=== PATIENT | male | born 1980 | race Caucasian/White ===

== ENCOUNTER 2020-11-25 15:18 | Emergency (ER) | payer OTHER ==
[~2020-11-25] VITALS: Ht 170.2 cm; Wt 49.1 kg
[2020-11-25 15:27] VITALS: Ht 170.2 cm; Wt 49.1 kg
[2020-11-25 18:40] VITALS: BP 109/64
[2020-11-26] MEDS ORDERED: KEPPRA500 MG PO (05:03)
[2020-11-26] MEDS ORDERED: LITHOBID 300 M300 MG PO (05:04)
[2020-11-26] MEDS ORDERED: LITHIUM CARBON300 MG PO (05:04)
[2020-11-26] MEDS ORDERED: NEURONTIN 300300 MG PO (05:05)
[2020-11-26] MEDS ORDERED: CLOZAPINE200 MG PO (05:05)
[2020-11-26] MEDS ORDERED: MOBIC7.5 MG PO (05:06)
[2020-11-26] MEDS ORDERED: NEURONTIN600 MG PO (05:06)
[2020-11-26] MEDS ORDERED: CALCIUM CARBONATE (05:07)
[2020-11-26] MEDS ORDERED: FERROUS SULFAT325 MG PO (05:07)
[2020-11-26] MEDS ORDERED: TOPROL XL25 MG PO (05:07)
[2020-11-26] MEDS ORDERED: [UNRECOGNIZED DRUG - OTHER] PO (05:08)
[2020-11-26] MEDS ORDERED: ABILIFY10 MG PO (05:09)
[2020-11-26 09:55] VITALS: Ht 170.2 cm; Wt 49.1 kg
== END 2020-11-25 17:30 | disposition other institution (70) ==
LOC: D.ER 15:18
DX: L89.892 Pressure ulcer of other site, stage 2 (principal); Z89.511 Acquired absence of right leg below knee

== ENCOUNTER 2020-11-26 03:34 | Inpatient (IN) | payer OTHER ==
[2020-11-26] VITALS (21 sets, daily range): BP systolic 100–137; BP diastolic 54–97; BMI 25.1
[~2020-11-26] VITALS: Ht 170.2 cm; Wt 65.3 kg
--- NOTE | 2020-11-26 03:57 | NUR ---
FSBS 73
--- NOTE | 2020-11-26 04:17 | NUR ---
PT TO RADIOLOGY VIA STRETCHER
[2020-11-26 04:25] LABS: BASOPHILS 0.2 % (0-2); EOSINOPHILS 0 % (0-7); HEMATOCRIT 34.8 % (42.0-54.0); HEMOGLOBIN 11.1 g/dL (13.5-17.5); MCH 27.5 pg (26.0-34.0); MCV 86.1 fL (80.0-100.0); MEAN PLATELET VOLUME 7.5 fL (7.4-10.4); NEUTROPHILS 71.8 % (40-80); PLATELET COUNT 143 10x3/uL (130-400); RBC 4.04 10x6/uL (4.20-6.10); RDW 14.1 % (11.5-14.5); WBC 4.6 10x3/uL (4.8-10.8)
--- NOTE | 2020-11-26 04:29 | NUR ---
PT RETURNED FROM RADIOLOGY.
[2020-11-26 04:31] LABS: CALC OSMOLALITY 286 mosm/kg (275-300); CALCIUM 8.9 mg/dL (8.5-10.1); CARBON DIOXIDE 25.1 mmol/L (21.0-32.0); CHLORIDE - SERUM 108 mmol/L (98-107); CREATININE - SERUM 0.8 mg/dL (0.6-1.3); GLUCOSE 74 mg/dL (74-106); POTASSIUM - SERUM 3.1 mmol/L (3.5-5.1); SODIUM 144 mmol/L (136-145); UREA NITROGEN 15 mg/dL (7-18); eGFR NON AFRICAN AMERICAN > 90 mL/min (90-120)
[2020-11-26 04:34] LABS: INR 1.47 (0.85-1.17); PROTIME 16.5 SECONDS (11.6-15.0)
[2020-11-26 04:48] LABS: ALBUMIN 3.3 g/dL (3.4-5.0); ALKALINE PHOSPHATASE 84 U/L (30-120); ALT (SGPT) 16 U/L (10-68); BILIRUBIN - TOTAL 0.26 mg/dL (0.2-1.3); CKMB 3.4 U/L (0.0-3.6); CREATINE KINASE 252 UL (21-232); PRO BNP 48 pg/mL (0-125); PROTEIN - SERUM 6.7 g/dL (6.4-8.2)
[2020-11-26 04:49] LABS: TROPONIN-I < 0.017 ng/mL (0.000-0.060)
[2020-11-26] MEDS ORDERED: KEPPRA500 MG PO (05:03)
[2020-11-26] MEDS ORDERED: LITHIUM CARBON300 MG PO (05:04)
[2020-11-26] MEDS ORDERED: LITHOBID 300 M300 MG PO (05:04)
[2020-11-26 05:05] LABS: UDS - AMPHET NEGATIVE QUAL (NEGATIVE); UDS - BARB NEGATIVE QUAL (NEGATIVE); UDS - BENZO NEGATIVE QUAL (NEGATIVE); UDS - COCAINE NEGATIVE QUAL (NEGATIVE); UDS - OPIATE NEGATIVE QUAL (NEGATIVE); UDS - PCP NEGATIVE QUAL (NEGATIVE); UDS - THC NEGATIVE QUAL (NEGATIVE)
[2020-11-26] MEDS ORDERED: CLOZAPINE200 MG PO (05:05)
[2020-11-26] MEDS ORDERED: NEURONTIN 300300 MG PO (05:05)
[2020-11-26] MEDS ORDERED: NEURONTIN600 MG PO (05:06)
[2020-11-26] MEDS ORDERED: MOBIC7.5 MG PO (05:06)
[2020-11-26] MEDS ORDERED: FERROUS SULFAT325 MG PO (05:07)
[2020-11-26] MEDS ORDERED: TOPROL XL25 MG PO (05:07)
[2020-11-26] MEDS ORDERED: CALCIUM CARBONATE PO (05:07)
[2020-11-26] MEDS ORDERED: [UNRECOGNIZED DRUG - OTHER] PO (05:08)
[2020-11-26] MEDS ORDERED: ABILIFY10 MG PO (05:09)
--- NOTE | 2020-11-26 05:50 | NUR ---
PT FSBS RECHECK 71
--- NOTE | 2020-11-26 08:18 | NUR ---
CALLED REPORT TO ISRAEL GHOSH IN ICU.
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
--- NOTE | 2020-11-26 13:52 | NUR ---
1100-DR ANSARI AT BEDSIDE-PERSISTANT STIMULI-AGGRESSION FROM PT-LIO, INCOHEREBENITO
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
[2020-11-26 17:36] LABS: BILIRUBIN NEGATIVE (NEGATIVE); KETONE SMALL mg/dL (NEGATIVE); NITRITE NEGATIVE (NEGATIVE); UROBILINOGEN NORMAL mg/dL (< 2)
--- NOTE | 2020-11-26 20:00 | NUR ---
REC'D REPORT AND ASSUMED CARE OF PT. HAD JUST FINISHED EATING HIS DINNER, WHOM PREV SHIFT HAD PROVIDED FOR HIM. OK WITH TRAY BEING TAKEN AWAY BUT DID NOT WANT THE EMPTY COKE CANS TAKEN AWAY. DIFFICULT TO UNDERSTAND SPEECH, WOULD BECOME ANGRIER WHEN HE WASN'T UNDERSTOOD. INITIAL ASSESSMENT COMPLETED AND RECORDED PER FLOW SHEET. CULTURE RESULTS FROM WOUND ON STUMP CALLED TO Jocelyn BARNES APRN AND SHE WAS GOING TO PUT IN ANTIBIOTIC ORDERS. WILL IMPLEMENT ORDERS SOON THEY ARE AVAILABLE.
--- NOTE | 2020-11-26 23:30 | NUR ---
SITTING IN BED, CHANTING TO SELF, WORDS INDISTINGUISHABLE. NOTICE AN OCCASIONAL NON-PRODUCTIVE COUGH. VSS. WILL CONT TO MONITOR. HAVE NOT GIVEN ANY ATIVAN THUS FAR HE HAS BEEN SLEEPING.
[2020-11-27] VITALS (20 sets, daily range): BP systolic 95–140; BP diastolic 57–91
--- NOTE | 2020-11-27 04:20 | NUR ---
CONT TO SLEEP FOR THE MOST PART BUT IS BECOMING MORE COOPERATIVE AND EASIER TO UNDERSTAND OVER THE PAST COUPLE OF HOURS, BEING COOPERATIVE AND NO HOSTILITY NOTED. HAS NOT BEEN ARGUMENTATIVE, ASKING POLITELY FOR SOMETHING MORE TO DRINK OR A SNACK. A.M. LAB JUST DRAWN W/O ANY DIFFICULTY. WILL CONT WITH CURRENT PLAN OF CARE.
[2020-11-27 04:42] LABS: BASOPHILS 0.1 % (0-2); EOSINOPHILS 0 % (0-7); HEMATOCRIT 33.5 % (42.0-54.0); HEMOGLOBIN 10.9 g/dL (13.5-17.5); LYMPHOCYTES 32.9 % (15-50); MCH 27.8 pg (26.0-34.0); MCHC 32.6 g/dL (31.0-37.0); MCV 85.5 fL (80.0-100.0); MEAN PLATELET VOLUME 7.3 fL (7.4-10.4); MONOCYTES 9.1 % (2-11); NEUTROPHILS 57.9 % (40-80); PLATELET COUNT 135 10x3/uL (130-400); RBC 3.92 10x6/uL (4.20-6.10)
[2020-11-27 04:57] LABS: ALBUMIN 2.8 g/dL (3.4-5.0); ALKALINE PHOSPHATASE 68 U/L (30-120); ALT (SGPT) 15 U/L (10-68); BILIRUBIN - TOTAL 0.14 mg/dL (0.2-1.3); CALCIUM 8.2 mg/dL (8.5-10.1); CARBON DIOXIDE 24.9 mmol/L (21.0-32.0); CHLORIDE - SERUM 108 mmol/L (98-107); CREATININE - SERUM 0.8 mg/dL (0.6-1.3); GLUCOSE 106 mg/dL (74-106); MAGNESIUM - SERUM 1.9 mg/dL (1.8-2.4); POTASSIUM - SERUM 3.2 mmol/L (3.5-5.1); SODIUM 143 mmol/L (136-145); eGFR NON AFRICAN AMERICAN > 90 mL/min (90-120)
[2020-11-27 04:58] LABS: CALC OSMOLALITY 281 mosm/kg (275-300); UREA NITROGEN 5 mg/dL (7-18)
--- NOTE | 2020-11-27 07:49 | NUR ---
awake alert and calm-ativan held at this time-breakfest tray ordered-pharmacy notified of correct administration time for vancomycin-by previous [id number] prior to correctly scheduled
--- NOTE | 2020-11-27 10:05 | NUR ---
0900-REFUSED AGRESSIVELY-PO MEDS--REFUSED AGRESSIVELY REPEAT LAB DRAW
--- NOTE | 2020-11-27 12:11 | NUR ---
1100-agressively refused po med 1145-engaged in [address] conversation with self
--- NOTE | 2020-11-27 15:14 | NUR ---
1230-CHANBECKIE 1300-APPOINTMENT MANAGER WITH PSYCH SERVICES AT BEDSIDE-MADE AWARE PRN DOES OF ATIVAN AND HALDOL USED--AND EVENTS THROUGH OUT THIS AM-ORDERS RECIEVED-SENAN
--- NOTE | 2020-11-27 16:59 | NUR ---
1600-REQUESTED TELEPHONE-SAME PROVIDED-NO FURTHER CHANTING AT THIS TIME
--- NOTE | 2020-11-27 17:25 | NUR ---
APPEARS CALM AT THIS TIME
--- NOTE | 2020-11-27 20:00 | NUR ---
REC'D REPORT AND ASSUMED CARE OF PT. INITIAL ASSESSMENT COMPLETED AND RECORDED PER FLOW SHEET. L AC PIV PATENT, INFUSING W/O DIFF. HAD BEEN DOZING BUT EASILY RESPONDS TO VERBAL STIMULI AND AROUSES. WILL MONITOR.
--- NOTE | 2020-11-27 23:30 | NUR ---
HAS BEEN OCC DOZING OR SITTING IN THERE TALKING TO SOMEONE OR CHANTING INCOM- PREHENSIBLE WORDS. TOOK PM MEDS WITHOUT DIFFICULTY, WILL CONT TO MONITOR.
[2020-11-28] VITALS (15 sets, daily range): BP systolic 91–151; BP diastolic 59–92
--- NOTE | 2020-11-28 03:30 | NUR ---
LYING QUIETLY, HAS NOT BEEN CHANTING FOR PAST COUPLE OF HOURS. WILL CONT TO MONITOR.
[2020-11-28 05:08] LABS: BASOPHILS 0.1 % (0-2); EOSINOPHILS 0 % (0-7); HEMATOCRIT 33.1 % (42.0-54.0); HEMOGLOBIN 10.8 g/dL (13.5-17.5); LYMPHOCYTES 28.4 % (15-50); MCH 28.2 pg (26.0-34.0); MCHC 32.7 g/dL (31.0-37.0); MCV 86.3 fL (80.0-100.0); MEAN PLATELET VOLUME 7.8 fL (7.4-10.4); MONOCYTES 8.7 % (2-11); NEUTROPHILS 62.8 % (40-80); PLATELET COUNT 147 10x3/uL (130-400); RBC 3.83 10x6/uL (4.20-6.10); RDW 13.8 % (11.5-14.5); WBC 4.9 10x3/uL (4.8-10.8)
[2020-11-28 05:17] LABS: ALBUMIN 2.5 g/dL (3.4-5.0); ALKALINE PHOSPHATASE 67 U/L (30-120); ALT (SGPT) 12 U/L (10-68); BILIRUBIN - TOTAL 0.15 mg/dL (0.2-1.3); CALC OSMOLALITY 277 mosm/kg (275-300); CALCIUM 8.3 mg/dL (8.5-10.1); CARBON DIOXIDE 25.8 mmol/L (21.0-32.0); CHLORIDE - SERUM 109 mmol/L (98-107); CREATININE - SERUM 0.7 mg/dL (0.6-1.3); GLUCOSE 71 mg/dL (74-106); MAGNESIUM - SERUM 1.7 mg/dL (1.8-2.4); POTASSIUM - SERUM 3.5 mmol/L (3.5-5.1); PROTEIN - SERUM 5.7 g/dL (6.4-8.2); SODIUM 142 mmol/L (136-145); UREA NITROGEN 4 mg/dL (7-18); eGFR NON AFRICAN AMERICAN > 90 mL/min (90-120)
[2020-11-29] VITALS: BP 107/63
--- NOTE | 2020-11-29 02:53 | NUR ---
PATIENT REFUSED HIS 2100 MEDICATIONS, HE TOOK HIS IV OUT. HE WAS LAYING THERE WITH HIS EYES CLOSED AND WOULD NOT ANSWER MY QUESTIONS, THEN I WENT IN THERE TO TRY TO GET HIM HIS MEDS HE REFUSED, I CAME IN WITH THE ATIVAN AND TOLD HIMM I HAD A SHOT FOR HIM, I ASKE THE CHARGE AND TECH TO COME IN IN CASE HE TRIED TO HIT ME, I RETURNED TO HIS ROOM AND HE SAID I THOUGH YOU WERE GONNA GIVE ME A SHOT AND SAID HERE GIVE IT RIGHT HERE. HE HAS BEEN TALKING TO HIMSELF OFF AND ON, HE IS CURRENTLY RESTING IN BED WITH HIS EYES CLOSED.
[2020-11-29 04:00] VITALS: BP 112/67
[2020-11-29 06:05] LABS: BASOPHILS 0.4 % (0-2); EOSINOPHILS 0 % (0-7); HEMATOCRIT 32.5 % (42.0-54.0); HEMOGLOBIN 10.7 g/dL (13.5-17.5); LYMPHOCYTES 29.5 % (15-50); MCH 28.1 pg (26.0-34.0); MCV 85.2 fL (80.0-100.0); MEAN PLATELET VOLUME 8.2 fL (7.4-10.4); MONOCYTES 7.5 % (2-11); NEUTROPHILS 62.6 % (40-80); PLATELET COUNT 171 10x3/uL (130-400); RBC 3.82 10x6/uL (4.20-6.10); RDW 13.8 % (11.5-14.5); WBC 5.3 10x3/uL (4.8-10.8)
[2020-11-29 07:02] LABS: ALBUMIN 2.6 g/dL (3.4-5.0); ALKALINE PHOSPHATASE 69 U/L (30-120); ALT (SGPT) 13 U/L (10-68); BILIRUBIN - TOTAL 0.07 mg/dL (0.2-1.3); CALC OSMOLALITY 286 mosm/kg (275-300); CALCIUM 8.5 mg/dL (8.5-10.1); CARBON DIOXIDE 24.9 mmol/L (21.0-32.0); CHLORIDE - SERUM 110 mmol/L (98-107); CREATININE - SERUM 0.8 mg/dL (0.6-1.3); GLUCOSE 135 mg/dL (74-106); MAGNESIUM - SERUM 1.9 mg/dL (1.8-2.4); POTASSIUM - SERUM 3.4 mmol/L (3.5-5.1); PROTEIN - SERUM 5.8 g/dL (6.4-8.2); SODIUM 144 mmol/L (136-145); UREA NITROGEN 8 mg/dL (7-18); eGFR NON AFRICAN AMERICAN > 90 mL/min (90-120)
--- NOTE | 2020-11-29 07:05 | NUR ---
PATIENT NONCOMPLIANT LAST NIGHT, REFUSED MEDICATIONS LAST NIGHT, PATIENT K+ IS 3.4 WILL REPLETE THIS MORNING. CONTINUE WITH PLAN OF CARE
[2020-11-29 08:38] VITALS: BP 156/67
--- NOTE | 2020-11-29 11:31 | NUR ---
I have reviewed this patient and I concur with the Shift Assessment completed by the Licensed Practical Nurse today this shift.
[2020-11-29 11:45] VITALS: BP 115/71
[2020-11-29 12:24] VITALS: Ht 170.2 cm; Wt 65.3 kg
[2020-11-29 17:03] VITALS: BP 107/58
[2020-11-29 20:00] VITALS: BP 104/63
[2020-11-30 04:00] VITALS: BP 106/58
--- NOTE | 2020-11-30 06:42 | NUR ---
PATIENT HAD ANXIETY MANAGED WITH THE PRESCRIBED MEDICATION, HE IS CURRENTLY RESTING IN BED WITH HIS EYES CLOSED.
[2020-11-30 06:47] LABS: ALBUMIN 2.3 g/dL (3.4-5.0); ALKALINE PHOSPHATASE 58 U/L (30-120); ALT (SGPT) 10 U/L (10-68); BILIRUBIN - TOTAL 0.12 mg/dL (0.2-1.3); CALC OSMOLALITY 284 mosm/kg (275-300); CALCIUM 8.1 mg/dL (8.5-10.1); CARBON DIOXIDE 24.6 mmol/L (21.0-32.0); CHLORIDE - SERUM 112 mmol/L (98-107); CREATININE - SERUM 0.6 mg/dL (0.6-1.3); GLUCOSE 94 mg/dL (74-106); POTASSIUM - SERUM 3.7 mmol/L (3.5-5.1); PROTEIN - SERUM 5.2 g/dL (6.4-8.2); SODIUM 144 mmol/L (136-145); UREA NITROGEN 6 mg/dL (7-18); eGFR NON AFRICAN AMERICAN > 90 mL/min (90-120)
[2020-11-30 08:23] VITALS: BP 111/68
[2020-11-30 08:33] LABS: BASOPHILS 0.1 % (0-2); EOSINOPHILS 0 % (0-7); HEMATOCRIT 33.1 % (42.0-54.0); HEMOGLOBIN 10.8 g/dL (13.5-17.5); MCH 27.7 pg (26.0-34.0); MCHC 32.6 g/dL (31.0-37.0); MEAN PLATELET VOLUME 7.4 fL (7.4-10.4); MONOCYTES 9.1 % (2-11); NEUTROPHILS 62.8 % (40-80); PLATELET COUNT 198 10x3/uL (130-400); RDW 13.9 % (11.5-14.5); WBC 4.9 10x3/uL (4.8-10.8)
--- NOTE | 2020-11-30 09:10 | NUR ---
ALERT AND ORIENTED THIS MORNING. IS TALKING TO SELF AND OTHERS NOT IN THE ROOM. UPRIGHT IN BED EATING BREAKFAST. ADMINISTERED MEDICATION, NO DIFFICULTIES. DENIES ANY NEEDS AT THIS TIME. BED IN LOWEST POSITION, BED RAILS X2, CALL LIGHT WITHIN REACH. WILL CONTINUE POC. ASSESSMENT PERFORMED AT THIS TIME.
[2020-11-30 12:09] VITALS: BP 102/64
[2020-11-30 13:12] LABS: CLOZAPINE, SERUM 21 ng/mL (350-650); NORCLOZAPINE, SERUM 22 ng/mL (Not Estab.); TOTAL CLOZAPINE & NORCLOZAPINE 43 ng/mL (())
--- NOTE | 2020-11-30 13:59 | NUR ---
IN BED, DENIES NEEDS AT THIS TIME. BED LOW POSITION, CALL LIGHT IN REACH. FREE FROM SIGNS OF DISTRESS. I CONCUR WITH DROP FORGE OPERATOR SHIFT ASSESSMENT.
--- NOTE | 2020-11-30 15:22 | PN ---
PATIENT:MARCIA AMARO MEDICAL RECORD: [id number] LOCATION:[id number] ADMISSION DATE: 11/26/20 PROGRESS NOTE DATE OF SERVICE: 11/28/2020 SUBJECTIVE: The patient's case was discussed with staff. He has no new complaint. OBJECTIVE: The patient is partially oriented. He denies psychotic symptoms. He denies that he would seek to harm himself or others. ASSESSMENT: Schizophrenia. PLAN: Current medicines have been reviewed. They will be maintained. TRANSINT:[id number] Voice Confirmation ID: [id number] DOCUMENT ID: [id number] LUCAS JOYNER MD at 1522 CC: [id number] DICTATION DATE: 11/28/20 170 TAX CLERK: 11/30/20 0103 ADM IN [facility] [address] [place] [address]
--- NOTE | 2020-11-30 16:20 | NUR ---
HUNG NEW BAG OF IV FLUIDS, TOLERATING WELL. RESTING UPRIGHT IN BED. SIGNING OUTLOUD. DENIES ANY NEEDS. BED IN LOWEST POSITION, BED RAILS X2, CALL LIGHT WITHIN REACH. WILL CONTINUE POC.
[2020-11-30 17:02] VITALS: BP 116/74
[2020-11-30 20:00] VITALS: BP 105/68
[2020-12-01 04:00] VITALS: BP 111/61
--- NOTE | 2020-12-01 06:05 | NUR ---
PATIENT SITTING IN BED WATCHING TV LOUD IT WILL GO, MUMBLING INCOHERANT WORDS TO SELF, NO SIGNS OF DISTRESS, ANSWERS QUESTIONS APPROPRIATELY, CONTINUE WITH PLAN OF CARE
[2020-12-01 07:16] LABS: BASOPHILS 0.2 % (0-2); EOSINOPHILS 0 % (0-7); HEMATOCRIT 32.6 % (42.0-54.0); HEMOGLOBIN 10.9 g/dL (13.5-17.5); MCH 28.4 pg (26.0-34.0); MCHC 33.4 g/dL (31.0-37.0); MEAN PLATELET VOLUME 7.5 fL (7.4-10.4); MONOCYTES 7.8 % (2-11); PLATELET COUNT 209 10x3/uL (130-400); RBC 3.84 10x6/uL (4.20-6.10); RDW 14.1 % (11.5-14.5)
[2020-12-01 07:33] LABS: WBC 7.4 10x3/uL (4.8-10.8)
[2020-12-01 07:40] LABS: ALBUMIN 2.7 g/dL (3.4-5.0); ALKALINE PHOSPHATASE 66 U/L (30-120); CALC OSMOLALITY 278 mosm/kg (275-300); CALCIUM 8.3 mg/dL (8.5-10.1); CARBON DIOXIDE 26.8 mmol/L (21.0-32.0); CHLORIDE - SERUM 108 mmol/L (98-107); CREATININE - SERUM 0.7 mg/dL (0.6-1.3); GLUCOSE 87 mg/dL (74-106); MAGNESIUM - SERUM 2.1 mg/dL (1.8-2.4); POTASSIUM - SERUM 3.9 mmol/L (3.5-5.1); PROTEIN - SERUM 5.6 g/dL (6.4-8.2); SODIUM 142 mmol/L (136-145); UREA NITROGEN 5 mg/dL (7-18); eGFR NON AFRICAN AMERICAN > 90 mL/min (90-120)
[2020-12-01 07:42] LABS: ALT (SGPT) 15 U/L (10-68)
--- NOTE | 2020-12-01 08:20 | NUR ---
AWAKE AND ALERT. ORIENTED X3. NO C/O AT THIS TIME. LUNGS ARE CLEAR BILATERALLY, NO COUGH NOTED. SKIN IS INTACT WITHOUT REDNESS EXCEPT TO COCCYX AREA WHICH HAS A SUPERFICIAL STAGE 2. IV TO LEFT FOREARM IS PATENT WITHOUT REDNESS AT INSETION SITE. RIGHT BKA NOTED. DENIES NEEDS.
[2020-12-01 08:51] VITALS: BP 107/61
--- NOTE | 2020-12-01 09:00 | NUR ---
ATE MOST OF BREAKFAST. TOOK AM MEDS WITHOUT DIFFICULTY. DENIES NEEDS.
[2020-12-01 11:00] VITALS: BP 110/65
--- NOTE | 2020-12-01 11:00 | NUR ---
UP TO BSC PER SELF. VOIDED WITHOUT DIFFICULTY. SMALL STAGE 2 NOTED TO COCCYX AREA. CALMOSEPTINE APPLIED TO SAME.
--- NOTE | 2020-12-01 12:30 | NUR ---
LUNCH SERVED IN ROOM. FEEDS SELF. DENIES NEEDS.
--- NOTE | 2020-12-01 15:00 | NUR ---
RESTING QUIETLY IN BED. SOME RESTLESSNESS NOTED. WILL MONITOR.
--- NOTE | 2020-12-01 18:05 | NUR ---
GIVEN 2 MG HALDOL IM PER ORDERS. CALMED DOWN SOON HE RELIZED WHAT WAS HAPPENING. REFUSED TO EAT ANY SUPPER.
[2020-12-01 20:39] VITALS: BP 115/68
--- NOTE | 2020-12-02 03:10 | NUR ---
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 HE WAS THREATENING US AND WE LEFT THE ROOM AND HEALTH PROGRAM MANAGER WAS CALLED AND THE HOUSE SUPER VISOR BROUGHT SECURITY WITH HER AND SECURITY STOOD OUTSIDE THE DOOR. WHEN HE SAW THE HIV CTS SPECIALIST HE CALMED DOWN, WAS RESPECTFUL AND TOOK THE ATIVAN. HE HAS BEEN CALM AND RESTING AT THIS TIME.
--- NOTE | 2020-12-02 07:37 | NUR ---
PATIENT VERY IRRITATED THIS MORNING. SAID " I DON'T WANT THEM TAKING MY BLOOD THEYVE TAKEN BLOOD EVERY DAY" EXPLAINED THAT THE NLOOD DRAW WAS TO SEE THE LEVELS OF MEDICINE IN HIS SYSTEM TO SEE IF HE IS GETTING ENOUGH. PATIENT STATES HE IS ANGRY BECAUSE HE IS HUNGRY. GAVE PATIENT HALF A SANDWICH AND CHIPS WELL TWO DRINKS. WILL TRY TO START IV WHEN PATIENT CALMS DOWN MORE
--- NOTE | 2020-12-02 08:36 | NUR ---
patient refused to let occupational therapy technician take vs this morning, he is pleasuring himself and saying invoherant words. will attempt to give patient medications, patient refused to allow iv access
[2020-12-02 09:29] LABS: BASOPHILS 0.5 % (0-2); EOSINOPHILS 0 % (0-7); HEMATOCRIT 34.3 % (42.0-54.0); LYMPHOCYTES 16.8 % (15-50); MCH 27.4 pg (26.0-34.0); MCHC 32.1 g/dL (31.0-37.0); MCV 85.6 fL (80.0-100.0); MEAN PLATELET VOLUME 7.2 fL (7.4-10.4); MONOCYTES 7.3 % (2-11); NEUTROPHILS 75.4 % (40-80); PLATELET COUNT 232 10x3/uL (130-400); RBC 4.01 10x6/uL (4.20-6.10); RDW 14.3 % (11.5-14.5); WBC 6.2 10x3/uL (4.8-10.8)
[2020-12-02 09:47] LABS: ALBUMIN 2.7 g/dL (3.4-5.0); ALKALINE PHOSPHATASE 65 U/L (30-120); ALT (SGPT) 14 U/L (10-68); BILIRUBIN - TOTAL 0.19 mg/dL (0.2-1.3); CALC OSMOLALITY 285 mosm/kg (275-300); CALCIUM 8.8 mg/dL (8.5-10.1); CARBON DIOXIDE 26.6 mmol/L (21.0-32.0); CHLORIDE - SERUM 110 mmol/L (98-107); CREATININE - SERUM 0.7 mg/dL (0.6-1.3); GLUCOSE 103 mg/dL (74-106); POTASSIUM - SERUM 3.4 mmol/L (3.5-5.1); PROTEIN - SERUM 6.2 g/dL (6.4-8.2); SODIUM 145 mmol/L (136-145); UREA NITROGEN 5 mg/dL (7-18); eGFR NON AFRICAN AMERICAN > 90 mL/min (90-120)
--- NOTE | 2020-12-02 10:11 | MORECARE ---
CASE MANAGEMENT DISCHARGE SUMMARY PATIENT: MARCIA AMARO UNIT: [id number] ADM DATE: 11/26/20 AGE: 40 : 80 SEX: M ROOM/BED: D.2215 AUTHOR: AMBER,DOC PHYSICIAN: REFERRING PHYSICIAN: RU JIMENES MD DATE OF SERVICE: 12/02/20 Case Management Discharge Planning Summary DCP REVIEW SUMMARY ANTICIPATED D/C DATE: EXPECTED LOS : CASE STATUS: DCP Initiated INITIAL REVIEW: 11/26/2020 INITIAL REVIEWER: Alycia Waterman FINAL DISCHARGE DISPOSITION: : FINAL REVIEWER: FINAL REVIEW DATE: DCP Focus Questions & Answers QUESTION: ANSWER : PATIENT: MARCIA AMARO ENCOUNTER: [id number] MEDICAL RECORD#: [id number] ADMISSION DATE: 11/26/2020 DISCHARGE DATE: ATTENDING MD: RU KERNS : AGE: 40 MARITAL STATUS: U DC PLAN ID: [id number] FACILITY: [facility] PRINTED ON: 12/02/20 10:11 CT All edits/amendments must be made on the electronic document DICTATION DATE: 12/02/20 1011 LINEN SORTER: DM 12/02/20 1011 RPT#: [id number] DC DATE: STATUS: ADM IN [facility] [address] [place] [address] END OF REPORT
--- NOTE | 2020-12-02 10:22 | MORECARE ---
CASE MANAGEMENT DISCHARGE SUMMARY PATIENT: MARCIA AMARO UNIT: [id number] ADM DATE: 11/26/20 AGE: 40 : 80 SEX: M ROOM/BED: D.2215 AUTHOR: AMBER,DOC PHYSICIAN: REFERRING PHYSICIAN: RU JIMENES MD DATE OF SERVICE: 12/02/20 Case Management Discharge Planning Summary COMMENTS ENTERED DATE: 12/02/20 10:09 CT COMMENT TYPE: Discharge Planning REVIEWER: Alycia Waterman CALLED [facility] AND SPOKE WITH LICO ABOUT TRANSFERING THE PATIENT BACK TO THEM, HE STATED THAT THEY ARE FULL AT THE MOMENT, I FAXED CLINICAL TO [phone] AND HE SAID THAT THEY MAY HAVE A BED LATER THIS AFTERNOON . HE WOULD GIVE THE CLINICAL TO THEIR INTAKE PEOPLE. CM TO CONTINUE TO FOLLOW AND ASSIST NEEDED DCP REVIEW SUMMARY ANTICIPATED D/C DATE: EXPECTED LOS : CASE STATUS: DCP Initiated INITIAL REVIEW: 11/26/2020 INITIAL REVIEWER: Alycia Waterman FINAL DISCHARGE DISPOSITION: : FINAL REVIEWER: FINAL REVIEW DATE: DCP Focus Questions & Answers QUESTION: ANSWER : PATIENT: MARCIA AMARO ENCOUNTER: [id number] MEDICAL RECORD#: [id number] ADMISSION DATE: 11/26/2020 DISCHARGE DATE: ATTENDING MD: RU KERNS : AGE: 40 MARITAL STATUS: U DC PLAN ID: [id number] FACILITY: [facility] PRINTED ON: 12/02/20 10:22 CT All edits/amendments must be made on the electronic document DICTATION DATE: 12/02/20 102 VEGETABLE LOADER: LORA 12/02/20 1022 RPT#: [id number] DC DATE: STATUS: ADM IN [facility] [address] [place] [address] END OF REPORT
[2020-12-02] MEDS ORDERED: NICODERM CQ1 EAC3 TRANSDERM (11:43)
[2020-12-02] MEDS ORDERED: HALDOL5 MG PO (11:44)
[2020-12-02] MEDS ORDERED: CALMOSEPTINE OI71 GM TOPICAL (11:44)
[2020-12-02] MEDS ORDERED: FLORAJEN DIGES1 EACH PO (11:44)
[2020-12-02] MEDS ORDERED: MUPIROCIN22 GM NASAL (11:44)
--- NOTE | 2020-12-02 13:59 | MORECARE ---
CASE MANAGEMENT DISCHARGE SUMMARY PATIENT: MARCIA AMARO UNIT: [id number] ADM DATE: 11/26/20 AGE: 40 : 80 SEX: M ROOM/BED: D.2215 AUTHOR: AMBER,DOC PHYSICIAN: REFERRING PHYSICIAN: RU JIMENES MD DATE OF SERVICE: 12/02/20 Case Management Discharge Planning Summary COMMENTS ENTERED DATE: 12/02/20 13:56 CT COMMENT TYPE: Discharge Planning REVIEWER: Alycia Columba PATIENT HAS BEEN ACCEPTED TO [facility] AND WILL BE TRANSFERING VIA EMS TO THEIR INPATIENT [facility] ENTERED DATE: 12/02/20 10:09 CT COMMENT TYPE: Discharge Planning REVIEWER: Alycia Waterman CALLED [facility] AND SPOKE WITH LICO ABOUT TRANSFERING THE PATIENT BACK TO THEM, HE STATED THAT THEY ARE FULL AT THE MOMENT, I FAXED CLINICAL TO [phone] AND HE SAID THAT THEY MAY HAVE A BED LATER THIS AFTERNOON . HE WOULD GIVE THE CLINICAL TO THEIR INTAKE PEOPLE. CM TO CONTINUE TO FOLLOW AND ASSIST NEEDED DCP REVIEW SUMMARY ANTICIPATED D/C DATE: EXPECTED LOS : CASE STATUS: DCP Initiated INITIAL REVIEW: 11/26/2020 INITIAL REVIEWER: Alycia Waterman FINAL DISCHARGE DISPOSITION: 65 : Discharged/Trans to a Psychiatric Hospital or Psychiatric Distinct Part Unit of Hospital FINAL REVIEWER: FINAL REVIEW DATE: DCP Focus Questions & Answers QUESTION: ANSWER : PATIENT: MARCIA AMARO ENCOUNTER: [id number] MEDICAL RECORD#: [id number] ADMISSION DATE: 11/26/2020 DISCHARGE DATE: ATTENDING MD: RU KERNS : AGE: 40 MARITAL STATUS: U DC PLAN ID: [id number] FACILITY: [facility] PRINTED ON: 12/02/20 13:59 CT All edits/amendments must be made on the electronic document DICTATION DATE: 12/02/20 135 SECURITIES SUPERVISOR: LORA 12/02/20 135 RPT#: [id number] DC DATE: STATUS: ADM IN [facility] [address] [place] [address] END OF REPORT
--- NOTE | 2020-12-02 16:17 | NUR ---
OT NOTE: PT LETHARGIC. PT REQUIRED MOD A FOR BED MOBILITY TASKS FOR HYGIENE. PT REQUIRED MAX A FOR UB/LB DRESSING AND HYGIENE. PT EXHIBITED SELF LIMITING BEHAVIORS. [id number] JUAN TURNER COTA
--- NOTE | 2020-12-06 09:28 | MORECARE ---
CASE MANAGEMENT DISCHARGE SUMMARY PATIENT: MARCIA AMARO UNIT: [id number] ADM DATE: 11/26/20 AGE: 40 : 80 SEX: M ROOM/BED: D.2215 AUTHOR: AMBER,DOC PHYSICIAN: REFERRING PHYSICIAN: RU JIMENES MD DATE OF SERVICE: 12/06/20 Case Management Discharge Planning Summary COMMENTS ENTERED DATE: 12/02/20 13:56 CT COMMENT TYPE: Discharge Planning REVIEWER: Alycia Columba PATIENT HAS BEEN ACCEPTED TO [facility] AND WILL BE TRANSFERING VIA EMS TO THEIR INPATIENT [facility] ENTERED DATE: 12/02/20 10:09 CT COMMENT TYPE: Discharge Planning REVIEWER: Alycia Waterman CALLED [facility] AND SPOKE WITH LICO ABOUT TRANSFERING THE PATIENT BACK TO THEM, HE STATED THAT THEY ARE FULL AT THE MOMENT, I FAXED CLINICAL TO [phone] AND HE SAID THAT THEY MAY HAVE A BED LATER THIS AFTERNOON . HE WOULD GIVE THE CLINICAL TO THEIR INTAKE PEOPLE. CM TO CONTINUE TO FOLLOW AND ASSIST NEEDED DCP REVIEW SUMMARY ANTICIPATED D/C DATE: EXPECTED LOS : CASE STATUS: DCP Initiated INITIAL REVIEW: 11/26/2020 INITIAL REVIEWER: Alycia Waterman FINAL DISCHARGE DISPOSITION: 65 : Discharged/Trans to a Psychiatric Hospital or Psychiatric Distinct Part Unit of Hospital FINAL REVIEWER: FINAL REVIEW DATE: DCP Focus Questions & Answers QUESTION: ANSWER : PATIENT: MARCIA AMARO ENCOUNTER: [id number] MEDICAL RECORD#: [id number] ADMISSION DATE: 11/26/2020 DISCHARGE DATE: 12/02/2020 ATTENDING MD: RU KERNS : AGE: 40 MARITAL STATUS: U DC PLAN ID: [id number] FACILITY: [facility] PRINTED ON: 12/06/20 9:28 CT All edits/amendments must be made on the electronic document DICTATION DATE: 12/06/20927 RADIOLOGICAL TECHNICIAN: LORA 12/06/20927 RPT#: [id number] DC DATE:12/02/20 STATUS: DIS IN [facility] [address] [place] [address] END OF REPORT
== END 2020-12-02 14:42 | disposition short-term general hospital (02) | DRG 92 ==
LOC: D.ER 03:34 → D.MS 06:17 → D.ICU 06:17 → D.MS 11-28 20:14
PROVIDERS: Emergency Medicine; Family Medicine; Psychiatry & Neurology Psychiatry; Student in an Organized Health Care Education/Training Program; ADMIT Family Medicine Adult Medicine; ATTEND Family Medicine Adult Medicine
DX: G92 Toxic encephalopathy (principal); S88.911A Complete traumatic amputation of right lower leg, level unspecified, initial encounter; T50.915A Adverse effect of multiple unspecified drugs, medicaments and biological substances, initial encounter; F20.9 Schizophrenia, unspecified; L89.892 Pressure ulcer of other site, stage 2; Z89.511 Acquired absence of right leg below knee; D72.819 Decreased white blood cell count, unspecified; E87.6 Hypokalemia

== ENCOUNTER 2020-12-16 21:01 | Emergency (ER) | payer OTHER ==
[~2020-12-16] VITALS: Ht 170.2 cm; Wt 65.0 kg
[~2020-12-16 21:01] MED LIST: ABILIFY10 MG PO; CALCIUM CARBONATE PO; CALMOSEPTINE OI71 GM TOPICAL; CLOZAPINE200 MG PO; FERROUS SULFAT325 MG PO; FLORAJEN DIGES1 EACH PO; HALDOL5 MG PO; KEPPRA500 MG PO; LITHIUM CARBON300 MG PO; LITHOBID 300 M300 MG PO; MOBIC7.5 MG PO; MUPIROCIN22 GM NASAL; NEURONTIN 300300 MG PO; NEURONTIN600 MG PO; NICODERM CQ1 EAC3 TRANSDERM; TOPROL XL25 MG PO; [UNRECOGNIZED DRUG - OTHER] PO
[2020-12-16 21:31] VITALS: Ht 170.2 cm; Wt 65.0 kg
[2020-12-16 21:39] LABS: BASOPHILS 0.3 % (0-2); EOSINOPHILS 0 % (0-7); HEMATOCRIT 36.6 % (42.0-54.0); HEMOGLOBIN 11.7 g/dL (13.5-17.5); LYMPHOCYTES 16.8 % (15-50); MCH 27.2 pg (26.0-34.0); MCV 84.9 fL (80.0-100.0); MEAN PLATELET VOLUME 7.2 fL (7.4-10.4); MONOCYTES 5.9 % (2-11); PLATELET COUNT 190 10x3/uL (130-400); RBC 4.31 10x6/uL (4.20-6.10); RDW 14.3 % (11.5-14.5); WBC 6.9 10x3/uL (4.8-10.8)
[2020-12-16 22:05] LABS: CALC OSMOLALITY 288 mosm/kg (275-300); CALCIUM 9.4 mg/dL (8.5-10.1); CARBON DIOXIDE 26.8 mmol/L (21.0-32.0); CHLORIDE - SERUM 106 mmol/L (98-107); CREATININE - SERUM 0.9 mg/dL (0.6-1.3); GLUCOSE 92 mg/dL (74-106); POTASSIUM - SERUM 3.2 mmol/L (3.5-5.1); SODIUM 144 mmol/L (136-145); UREA NITROGEN 18 mg/dL (7-18); eGFR NON AFRICAN AMERICAN > 90 mL/min (90-120)
[2020-12-16 22:07] LABS: LITHIUM 0.22 mmol/L (0.60-1.20); SALICYLATES 3.2 mg/dL (2.8-20.0)
[2020-12-16 22:12] LABS: ALBUMIN 3.6 g/dL (3.4-5.0); ALKALINE PHOSPHATASE 77 U/L (30-120); ALT (SGPT) 15 U/L (10-68); BILIRUBIN - TOTAL 0.23 mg/dL (0.2-1.3); MAGNESIUM - SERUM 2.1 mg/dL (1.8-2.4); PROTEIN - SERUM 7.4 g/dL (6.4-8.2)
[2020-12-17 01:00] LABS: SARS-CoV-2 ANTIGEN NEGATIVE- SARS-COV-2 (NEGATIVE)
[2020-12-17 02:25] LABS: BILIRUBIN NEGATIVE (NEGATIVE); KETONE TRACE mg/dL (< 1+); NITRITE NEGATIVE (NEGATIVE); PH 6.5 (5.0-8.0); UROBILINOGEN 2 mg/dL (< 2)
[2020-12-17 02:33] LABS: UDS - AMPHET NEGATIVE QUAL (NEGATIVE); UDS - BARB NEGATIVE QUAL (NEGATIVE); UDS - BENZO NEGATIVE QUAL (NEGATIVE); UDS - COCAINE NEGATIVE QUAL (NEGATIVE); UDS - OPIATE NEGATIVE QUAL (NEGATIVE); UDS - PCP NEGATIVE QUAL (NEGATIVE); UDS - THC NEGATIVE QUAL (NEGATIVE)
[2020-12-17 06:02] VITALS: BP 107/68
[2020-12-17 13:32] LABS: SQUAMOUS EPITHELIAL 1 HPF (0-4); WHITE CELLS - URINE 6 HPF (0-1)
== END 2020-12-17 09:25 ==
LOC: D.ER 21:01
PROVIDERS: Family Medicine
DX: F29 Unspecified psychosis not due to a substance or known physiological condition (principal)